=== PATIENT | female | born 1970 | race Caucasian/White ===

== ENCOUNTER 2024-04-15 09:32 | Emergency (ER) | payer MEDICAID ==
[2024-04-15 11:15] LABS: BASOPHILS PERCENT AUTO 0.3 % (0.0-1.0); EOSINOPHILS PERCENT AUTO 1.3 % (1.0-3.0); HEMATOCRIT 47.7 % (37.0-47.0); LYMPHOCYTES PERCENT AUTO 37.3 % (20.5-50.1); MEAN CORPUSCULAR HEMOGLOBIN 29.4 pg (27.0-34.0); MEAN CORPUSCULAR HGB CONC 33.5 g/dL (33.0-35.0); MEAN CORPUSCULAR VOLUME 87.5 fL (80-100); MONOCYTES PERCENT AUTO 5.7 % (2-8); NEUTROPHILS PERCENT AUTO 55.4 % (42.2-75.2); PLATELET COUNT,PLT 282 10^3/uL (150-450); RED BLOOD CELL COUNT 5.45 10^6/uL (4.2-5.4); WHITE BLOOD CELL COUNT,WBC 9.8 10^3/uL (5.0-10.0)
[2024-04-15] MEDS: Ondansetron 4 MG/2 ML SDV IVPUSH ONE (11:26)
[2024-04-15] MEDS: Sodium Chloride 0.9% 1,000 ML IV ONE (11:26)
[2024-04-15] MEDS: Sodium Chloride 0.9% 10 ML Syringe FLUSH PRN (11:26)
[2024-04-15 11:42] LABS: A/G RATIO 1.1; ALANINE AMINOTRANSFERASE,ALT 22 U/L (14-59); ALBUMIN 3.9 g/dL (3.4-5.0); ALKALINE PHOSPHATASE 81 U/L (46-116); ASPARTATE AMNIOTRANSFERASE,AST 11 U/L (15-37); BILIRUBIN TOTAL 0.4 mg/dL (0.2-1.0); BLOOD UREA NITROGEN,BUN 16 mg/dL (7-18); BUN/CREATININE RATIO 18.8 (No establ ref range); C-REACTIVE PROTEIN < 0.50 ng/dL (<=0.50); CALCIUM 9.4 mg/dL (8.5-10.1); CARBON DIOXIDE,CO2 26 mmol/L (21-32); CHLORIDE,CL 101 mmol/L (98-107); CREATININE 0.85 mg/dL (0.55-1.02); EST CRCL DRUG DOSING (CG) 68.08 mL/min; ESTIMATED GFR 81 mL/min (>=60); GLUCOSE RANDOM 125 mg/dL (70-99); LACTIC ACID 1.1 mmol/L (0.4-2.0); LIPASE 39 U/L (16-77); MAGNESIUM 1.6 mg/dL (1.8-2.4); PROTEIN TOTAL,TP 7.6 g/dL (6.4-8.2); SODIUM,NA 138 mmol/L (136-145)
== END 2024-04-15 12:03 | disposition home or self-care (01) ==
LOC: DL.ED 09:32
DX: A08.4 Viral intestinal infection, unspecified (principal); I10 Essential (primary) hypertension; E11.9 Type 2 diabetes mellitus without complications
CPT/HCPCS: 36415; 80053; 82947; 83605; 83690; 83735; 85025; 86140; 96374; 99284; 99284-25; J2405; J3490; J7030